=== PATIENT | male | born 1960 | race Caucasian/White ===

== ENCOUNTER 2016-07-22 18:01 | Observation (INO) | payer OTHER ==
--- NOTE | 2016-07-22 18:13 | ER Document Report ---
ED Medical Screen (RME) - General Chief Complaint: Abdominal Pain >50 Stated Complaint: ABDOMINAL PAIN Time Seen by Provider: 07/22/16 18:12 Notes: Patient is a 55-year-old male, past medical history rectal cancer s/p cancer/ radiation/chemo 9 years ago (now "cured"), presents with 2 hours of intermittent right upper quadrant abdominal pain radiating into his RLQ. PE: NAD. RRR. Lungs CTAB. RUQ abdominal tenderness. I have greeted and performed a rapid initial assessment of this patient. A comprehensive ED assessment and evaluation of the patient, analysis of test results and completion of the medical decision making process will be conducted by additional ED providers. TRAVEL OUTSIDE OF THE [place] IN LAST 30 DAYS: No - Related Data Allergies/Adverse Reactions: No Known Allergies Allergy (Verified 07/22/16 18:18) Past Medical History - Social History Family history: Malignancy Renal/ Medical History: Denies: Hx Peritoneal Dialysis Malignancy Medical History: Reports Hx Colorectal Cancer Past Surgical History: Reports: Hx Abdominal Surgery - COLON Ca RESECTED - Immunizations Hx Diphtheria, Pertussis, Tetanus Vaccination: No Physical Exam - Vital signs Vitals: Temp Pulse Resp BP Pulse Ox 97.5 F 70 20 142/73 H 96 07/22/16 18:08 07/22/16 18:08 07/22/16 18:08 07/22/16 18:08 07/22/16 18:08 Course - Vital Signs Vital signs: Temp Pulse Resp BP Pulse Ox 97.5 F 70 20 142/73 H 96 07/22/16 18:08 07/22/16 18:08 07/22/16 18:08 07/22/16 18:08 07/22/16 18:08
[2016-07-22 18:48] LABS: APPEARANCE,URINE CLEAR; BILIRUBIN,URINE NEGATIVE (NEGATIVE); GLUCOSE, URINE NEGATIVE (NEGATIVE); KETONES,URINE NEGATIVE (NEGATIVE); LEUKOCYTE ESTERASE,URINE NEGATIVE (NEGATIVE); NITRITE,URINE NEGATIVE (NEGATIVE); PROTEIN,URINE NEGATIVE (NEGATIVE); URINE SPECIFIC GRAVITY 1.029; UROBILINOGEN,URINE NEGATIVE mg/dL (<2.0)
[2016-07-22 18:49] LABS: ABSOLUTE LYMPHOCYTES (AUTO) 1.3 10^3/uL (0.5-4.7); ABSOLUTE NEUT (AUTO) 11.8 10^3/uL (1.7-8.2); BASOPHILS % (AUTO) 0.3 % (0-2); EOSINOPHILS % (AUTO) 0.1 % (0-6); HEMATOCRIT 48.9 % (37.9-51.0); HEMOGLOBIN 16.3 g/dL (13.5-17.0); MEAN CORPUSCULAR HEMOGLOBIN 28.6 pg (27.0-33.4); MEAN CORPUSCULAR HGB CONC 33.4 g/dL (32.0-36.0); MEAN CORPUSCULAR VOLUME 86 fl (80-97); MONOCYTES % (AUTO) 7.1 % (3-13); RED BLOOD COUNT 5.71 10^6/uL (4.35-5.55); RED CELL DISTRIBUTION WIDTH 14.1 % (11.5-14.0); SEGMENTED NEUTROPHILS % (AUTO) 83.5 % (42-78); WHITE BLOOD COUNT 14.1 10^3/uL (4.0-10.5)
[2016-07-22 19:03] LABS: ALANINE AMINOTRANSFERASE 52 U/L (21-72); ALBUMIN 4.7 g/dL (3.5-5.0); ALKALINE PHOSPHATASE 76 U/L (38-126); ANION GAP 13 (5-19); ASPARTATE AMINO TRANSFERASE 31 U/L (17-59); BILIRUBIN,DIRECT 0.2 mg/dL (0.0-0.4); BILIRUBIN,TOTAL 0.9 mg/dL (0.2-1.3); BLOOD UREA NITROGEN 28 mg/dL (7-20); CARBON DIOXIDE 24 mmol/L (22-30); CHLORIDE 106 mmol/L (98-107); CREATININE RESULT 0.79 mg/dL (0.52-1.25); GLUCOSE 93 mg/dL (75-110); LIPASE 148.1 U/L (23-300); POTASSIUM 4.4 mmol/L (3.6-5.0); SODIUM 142.7 mmol/L (137-145); TOTAL PROTEIN 7.9 g/dL (6.3-8.2)
--- NOTE | 2016-07-22 19:59 | RADIOLOGY REPORT (SQ) ---
EXAM DESCRIPTION: U/S ABDOMEN LIMITED W/O DOP COMPLETED DATE/TIME: 07/22/2016 7:22 pm REASON FOR STUDY: RUQ pain and tenderness COMPARISON: None. TECHNIQUE: Dynamic and static grayscale images acquired of the right upper quadrant and recorded on PACS. Additional selected color Doppler and spectral images recorded. LIMITATIONS: Study limited due to acoustical interference from fat or from air in the bowel. FINDINGS: PANCREAS: Parts or all of the pancreas poorly seen secondary to acoustical interference fr om fat or from air in the bowel. LIVER: Echotexture is coarse with increased echogenicity consistent with fatty infiltration. No mass es. LIVER VASCULATURE: Normal directional flow of the main portal vein and hepatic veins. GALLBLADDER: No stones. Normal wall thickness. No pericholecystic fluid. ULTRASOUND-DETECTED SKY'S SIGN: Reported positive. INTRAHEPATIC DUCTS AND COMMON DUCT: CBD and intrahepatic ducts normal caliber. No filling defects. INFERIOR VENA CAVA: Normal flow. AORTA: No aneurysm. RIGHT KIDNEY: Normal size. Normal echogenicity. No solid or suspicious masses. No hydronephrosis. No calcifications. PERITONEAL CAVITY AND RIGHT PLEURAL SPACE: No ascites or effusions. OTHER: No other significant finding. IMPRESSION: ULTRASOUND-DETECTED SKY'S SIGN: Reported positive. No gallstones or inflammatory changes of gallbladder wall/fossa. FATTY LIVER. PANCREAS PARTIALLY OR COMPLETELY OBSCURED. TECHNICAL DOCUMENTATION: JOB ID: [id number] [employer]- All Rights Reserved
[2016-07-22] MEDS ORDERED: MORPHINE SULFATE 10 MG/ML INJ IV ONE (20:15)
[2016-07-22] MEDS ORDERED: ONDANSETRON HCL INJ/PF 4 MG/2 ML SDV IV ONE (20:15)
[2016-07-22] MEDS ORDERED: NORMAL SALINE 1000 ML 1,000 ML IV ONE (20:16)
--- NOTE | 2016-07-22 20:18 | ER Document Report ---
ED GI/ - General Mode of Arrival: Ambulatory Information source: Patient TRAVEL OUTSIDE OF THE [place] IN LAST 30 DAYS: No - HPI Patient complains to provider of: Abdominal pain Associated symptoms: Other - See above <CANDELARIO FLETCHER - Last Filed: 07/22/16 21:46> <VIRY PEREIRA - Last Filed: 07/23/16 01:00> - General Chief Complaint: Abdominal Pain >50 Stated Complaint: ABDOMINAL PAIN Time Seen by Provider: 07/22/16 18:12 Notes: Patient is a 55 year old male, with a past medical history including rectal cancer, who presents to the emergency department complaining of abdominal pain on set 2 hours ago. Patient reports the pain came on gradually and is focused in his right lower quadrant. Patient also complains of mild nausea. (CANDELARIO FLETCHER) - Related Data Allergies/Adverse Reactions: No Known Allergies Allergy (Verified 07/22/16 18:18) Past Medical History - General Information source: Patient - Social History Smoking Status: Never Smoker Chew tobacco use (# tins/day): No Frequency of alcohol use: None Drug Abuse: None Family History: Reviewed & Not Pertinent Patient has suicidal ideation: No Patient has homicidal ideation: No Malignancy Medical History: Reports Hx Colorectal Cancer Past Surgical History: Reports: Hx Abdominal Surgery - COLON Ca RESECTED - Immunizations Hx Diphtheria, Pertussis, Tetanus Vaccination: No <CANDELARIO FLETCHER - Last Filed: 07/22/16 21:46> Review of Systems - Review of Systems Constitutional: No symptoms reported EENT: No symptoms reported Cardiovascular: No symptoms reported Respiratory: No symptoms reported Gastrointestinal: See HPI, Abdominal pain, Nausea Genitourinary: No symptoms reported Male Genitourinary: No symptoms reported Musculoskeletal: No symptoms reported Skin: No symptoms reported Hematologic/Lymphatic: No symptoms reported Neurological/Psychological: No symptoms reported -: Yes All other systems reviewed and negative <CANDELARIO FLETCHER - Last Filed: 07/22/16 21:46> Physical Exam - Vital signs Interpretation: Normal - General General appearance: Alert, Other - Appears uncomfortable - HEENT Head: Normocephalic, Atraumatic Mucous membranes: Dry - Respiratory Respiratory status: No respiratory distress Chest status: Nontender Breath sounds: Normal Chest palpation: Normal - Cardiovascular Rhythm: Regular Heart sounds: Normal auscultation Murmur: No - Abdominal Inspection: Normal Distension: No distension Bowel sounds: Normal Tenderness: Tender - Right lower quadrant tenderness to palpation, Guarding. No : Rebound Organomegaly: No organomegaly - Extremities General upper extremity: Normal inspection General lower extremity: Normal inspection - Neurological Neuro grossly intact: Yes Cognition: Normal Orientation: AAOx4 Hartwick Coma Scale Eye Opening: Spontaneous Katja Coma Scale Verbal: Oriented Hart[place] Coma Scale Motor: Obeys Commands Katja Coma Scale Total: 15 Speech: Normal - Psychological Associated symptoms: Normal affect, Normal mood - Skin Skin Temperature: Warm Skin Moisture: Dry Skin Color: Normal <CANDELARIO FLETCHER - Last Filed: 07/22/16 21:46> Course - Laboratory Result Diagrams: 07/22/16 18:27 07/22/16 18:27 <CANDELARIO FLETCHER - Last Filed: 07/22/16 21:46> - Laboratory Result Diagrams: 07/22/16 18:27 07/22/16 18:27 - Diagnostic Test Radiology reviewed: Reports reviewed <VIRY PEREIRA - Last Filed: 07/23/16 01:00> - Re-evaluation Re-evalutation: 07/23/16 00:59 Continues with right lower quadrant pain and guarding on exam. No evidence for appendicitis on CT at this time. Patient does have a white count left shift. He is still complaining of pain. Surgery has been consulted and will admit the patient. He is stable at this time and agrees with this plan. (VIRY PEREIRA) - Vital Signs Vital signs: Temp Pulse Resp BP Pulse Ox 97.5 F 70 20 142/73 H 96 07/22/16 18:08 07/22/16 18:08 07/22/16 18:08 07/22/16 18:08 07/22/16 18:08 - Laboratory Laboratory results interpreted by me: 07/22/16 07/22/16 07/22/16 18:27 18:27 18:27 WBC 14.1 H RBC 5.71 H RDW 14.1 H Seg Neutrophils % 83.5 H Lymphocytes % 9.0 L Absolute Neutrophils 11.8 H BUN 28 H Urine Blood SMALL H Discharge <CANDELARIO FLETCHER - Last Filed: 07/22/16 21:46> - Discharge Admitting Provider: Surgicalist - [facility] Unit Admitted: Surgical Floor <VIRY PEREIRA - Last Filed: 07/23/16 01:00> - Discharge Clinical Impression: Abdominal pain Qualifiers: Abdominal location: right lower quadrant Qualified Code(s): R10.31 - Right lower quadrant pain Condition: Stable Disposition: ADMITTED INPATIENT Scribe Attestation: 07/23/16 01:00 I personally performed the services described in the documentation, reviewed and edited the documentation which was dictated to the scribe in my presence, and it accurately records my words and actions. (VIRY PEREIRA) Scribe Documentation - Scribe Written by Mallorie:: mallorie Koo, 07/22/16, 2148 acting as scribe for :: Cathy <CANDELARIO FLETCHER - Last Filed: 07/22/16 21:46>
--- NOTE | 2016-07-22 22:37 | RADIOLOGY REPORT (SQ) ---
EXAM DESCRIPTION: CT ABD/PELVIS ORAL ONLY COMPLETED DATE/TIME: 07/22/2016 9:52 pm REASON FOR STUDY: R flank, LQ pain COMPARISON: None. TECHNIQUE: CT scan of the abdomen and pelvis performed without intravenous or oral contrast. Images reviewed with lung, soft tissue, and bone windows. Reconstructed coronal and sagittal MPR images revi ewed. All images stored on PACS. All CT scanners at this facility use dose modulation, iterative reconstruction, and/or weight based d osing when appropriate to reduce radiation dose to as low as reasonably achievable (ALARA). [facility]: Dose Right [facility]: CareDose [facility]: Dose Right [facility]: Teradose 4D [facility]: Macheen RADIATION DOSE: 12.25mGy. LIMITATIONS: None. FINDINGS: LOWER CHEST: No significant findings. No nodules or infiltrates. NON-CONTRASTED LIVER, SPLEEN, ADRENALS: Evaluation limited by lack of IV contrast. No identified sign ificant masses. PANCREAS: No masses. No peripancreatic inflammatory changes. GALLBLADDER: No identified stones by CT criteria. No inflammatory changes to suggest cholecystitis. RIGHT KIDNEY AND URETER: No suspicious masses. Assessment limited by lack of IV contrast. No signif icant calcifications. No hydronephrosis or hydroureter. LEFT KIDNEY AND URETER: No suspicious masses. Assessment limited by lack of IV contrast. No signifi cant calcifications. No hydronephrosis or hydroureter. AORTA AND RETROPERITONEUM: No aneurysm. No retroperitoneal masses or adenopathy. BOWEL AND PERITONEAL CAVITY: Small amount of mesenteric inflammatory changes adjacent to some distal ileal loops, nonspecific. No focal transition point or evidence of obstruction. Small amount of pel scott free fluid. APPENDIX: Normal. PELVIS, BLADDER, AND ABDOMINAL WALL:Postsurgical changes in the rectum. Small amount of pelvic free fluid.. Bladder normal. BONES: No acute findings. 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 OTHER: No other significant finding. IMPRESSION: Small amount of mesenteric inflammatory changes adjacent to some distal ileal loops, non specific. No focal transition point or evidence of obstruction. Small amount of pelvic free fluid. TECHNICAL DOCUMENTATION: JOB ID: [id number] Quality ID # [id number]: Final reports with documentation of one or more dose reduction techniques (e.g., Au tomated exposure control, adjustment of the mA and/or kV according to patient size, use of iterative reconstruction technique) 2010 [employer]- All Rights Reserved
[2016-07-23] MEDS ORDERED: KETOROLAC TROMETHAMINE INJ/PF 30 MG/1 ML SDV IV ONE (00:04)
[2016-07-23] MEDS ORDERED: MORPHINE SULFATE 10 MG/ML INJ IV PRN (01:47)
[2016-07-23] MEDS ORDERED: DEXTROSE 5%-LACTATED RINGERS 1,000 ML IV PRN (01:47)
[2016-07-23] MEDS ORDERED: ONDANSETRON HCL INJ/PF 4 MG/2 ML SDV IV PRN (01:47)
--- NOTE | 2016-07-23 01:47 | PDOC H&P ---
History of Present Illness Admission Date/PCP: 07/23/16 01:15 Patient complains of: Right lower quadrant pain History of Present Illness: TANIA MASTERSON is a 55 year old male, who was in his usual state of health, when he developed gradual onset of right lower quadrant pain with associated nausea without vomiting, without change in bowel habits, fever or chills, or history of previous episodes. The pain was initially 6 out of 10 in nature, which prompted him to come to the emergency room. Patient abdomen revealed right lower quadrant tenderness, with guarding but no rebound. Patient was noted to have a mildly elevated white blood cell count at 14,000, and a CT scan showed mesenteric inflammatory changes around the distal ileum, with a normal appendix. The impression was that this was an ileitis, and the patient is now admitted to the surgical service. Past Medical History Malignancy Medical History: Reports: Colorectal Cancer Social History Smoking Status: Never Smoker Family History Family History: Reviewed & Not Pertinent Parental Family History Reviewed: No - Not applicable Children Family History Reviewed: No - Not applicable Sibling(s) Family History Reviewed.: No - Not applicable Medication/Allergy Home Medications: Doxycycline Hyclate 100 mg PO BID #14 capsule 09/18/15 Ondansetron [Zofran Odt 4 mg Tablet] 1 - 2 tab PO Q4H PRN #15 tab.rapdis Meclizine HCl [Antivert 25 mg Tablet] 25 mg PO Q6HP PRN #30 tablet 10/15/15 Allergies/Adverse Reactions: No Known Allergies Allergy (Verified 07/22/16 18:18) Physical Exam Vital Signs: Temp Pulse Resp BP Pulse Ox 97.5 F 70 20 142/73 H 96 07/22/16 18:08 07/22/16 18:08 07/22/16 18:08 07/22/16 18:08 07/22/16 18:08 General appearance: PRESENT: no acute distress, cooperative, thin, well- developed, well-nourished Head exam: PRESENT: atraumatic, normocephalic Eye exam: PRESENT: conjunctiva pink, EOMI, PERRLA Mouth exam: PRESENT: moist, neck supple, tongue midline Neck exam: PRESENT: full ROM. ABSENT: JVD, lymphadenopathy, tenderness, thyromegaly, tracheal deviation Respiratory exam: PRESENT: clear to auscultation michelle Cardiovascular exam: PRESENT: RRR GI/Abdominal exam: PRESENT: guarding - guarding is mild, normal bowel sounds, soft, tenderness - High in the right lower quadrant, approaching the right paramedian region., other - Infraumbilical midline scar. Rectal exam: PRESENT: deferred Extremities exam: PRESENT: full ROM Musculoskeletal exam: PRESENT: full ROM Skin exam: PRESENT: warm Results Impressions: Abdomen Ultrasound 07/22/16 18:23 IMPRESSION: ULTRASOUND-DETECTED SKY'S SIGN: Reported positive. No gallstones or inflammatory changes of gallbladder wall/fossa. FATTY LIVER. PANCREAS PARTIALLY OR COMPLETELY OBSCURED. Abdomen/Pelvis CT 07/22/16 21:16 IMPRESSION: Small amount of mesenteric inflammatory changes adjacent to some distal ileal loops, nonspecific. No focal transition point or evidence of obstruction. Small amount of pelvic free fluid. Assessment & Plan - Plan Summary Plan Summary: We will keep the patient n.p.o., administer IV fluids, antibiotics, parenteral analgesics, and anti-emetics.
[2016-07-23] MEDS ORDERED: METRONIDAZOLE 500 MG/NS RTU 100 ML IV ONE (02:00)
[2016-07-23] MEDS ORDERED: CIPROFLOXACIN 400 MG/D5W RTU 400 MG/200 ML RTUPB IV ONE (02:00)
[2016-07-23 06:48] LABS: ABSOLUTE BASOPHILS # (AUTO) 0.1 10^3/uL (0.0-0.2); ABSOLUTE EOSINOPHILS # (AUTO) 0.1 10^3/uL (0.0-0.6); ABSOLUTE LYMPHOCYTES (AUTO) 1.1 10^3/uL (0.5-4.7); ABSOLUTE MONOCYTES (AUTO) 1.1 10^3/uL (0.1-1.4); BASOPHILS % (AUTO) 0.6 % (0-2); EOSINOPHILS % (AUTO) 0.6 % (0-6); HEMATOCRIT 44.5 % (37.9-51.0); HEMOGLOBIN 14.8 g/dL (13.5-17.0); HGB HCT DIFFERENCE -0.1; LYMPHOCYTES % (AUTO) 10.9 % (13-45); MEAN CORPUSCULAR HEMOGLOBIN 28.9 pg (27.0-33.4); MEAN CORPUSCULAR HGB CONC 33.2 g/dL (32.0-36.0); MEAN CORPUSCULAR VOLUME 87 fl (80-97); MONOCYTES % (AUTO) 10.9 % (3-13); RED BLOOD COUNT 5.11 10^6/uL (4.35-5.55); RED CELL DISTRIBUTION WIDTH 14.1 % (11.5-14.0); WHITE BLOOD COUNT 10.4 10^3/uL (4.0-10.5)
[2016-07-23] MEDS: ENOXAPARIN SODIUM INJ 40 MG/0.4 ML DISP.SYRIN SUBCUT SCH (07:54)
--- NOTE | 2016-07-23 08:04 | PDOC PROGRESS REPORT ---
Subjective Progress Note for:: 07/23/16 Subjective:: Feel better. Abdominal pain has not resolved but has improved since admission. Had bowel movements yesterday. Physical Exam Vital Signs: Temp Pulse Resp BP Pulse Ox 97.4 F 52 L 18 122/89 H 99 07/23/16 05:49 07/23/16 05:49 07/23/16 05:49 07/23/16 05:49 07/23/16 05:49 General appearance: PRESENT: no acute distress, cooperative Respiratory exam: PRESENT: clear to auscultation michelle Cardiovascular exam: PRESENT: RRR GI/Abdominal exam: PRESENT: other - Soft, very mild right lower quadrant abdominal tenderness with no peritoneal signs. Well-healed lower midline abdominal scar. No palpable hernia defects. Extremities exam: PRESENT: other - No swelling Results Laboratory Results: 07/23/16 06:15 07/23/16 06:15 WBC 10.4 RBC 5.11 Hgb 14.8 Hct 44.5 MCV 87 MCH 28.9 MCHC 33.2 RDW 14.1 H Plt Count 210 Seg Neutrophils % 77.0 Lymphocytes % 10.9 L Monocytes % 10.9 Eosinophils % 0.6 Basophils % 0.6 Absolute Neutrophils 8.0 Absolute Lymphocytes 1.1 Absolute Monocytes 1.1 Absolute Eosinophils 0.1 Absolute Basophils 0.1 Impressions: Abdomen Ultrasound 07/22/16 18:23 IMPRESSION: ULTRASOUND-DETECTED SKY'S SIGN: Reported positive. No gallstones or inflammatory changes of gallbladder wall/fossa. FATTY LIVER. PANCREAS PARTIALLY OR COMPLETELY OBSCURED. Abdomen/Pelvis CT 07/22/16 21:16 IMPRESSION: Small amount of mesenteric inflammatory changes adjacent to some distal ileal loops, nonspecific. No focal transition point or evidence of obstruction. Small amount of pelvic free fluid. Assessment & Plan - Diagnosis (1) Terminal ileitis of small intestine Qualifiers: Digestive disease complication type: without complication Qualified Code(s): K50.00 - Crohn's disease of small intestine without complications Is this a current diagnosis for this admission?: YesPlan: Responding to antibiotics. Will start clear liquids. No gastroenterology available for consultation. Will obtain hospitalist consult.
[2016-07-23] MEDS: METRONIDAZOLE 500 MG/NS RTU 100 ML IV SCH ×3 (09:06→20:55)
[2016-07-23] MEDS: CIPROFLOXACIN 400 MG/D5W RTU 400 MG/200 ML RTUPB IV SCH ×2 (10:49→22:06)
[2016-07-23] MEDS: ONDANSETRON HCL INJ/PF 4 MG/2 ML SDV IV PRN ×3 (11:08→19:21)
--- NOTE | 2016-07-23 13:10 | PDOC H&P ---
History of Present Illness Admission Date/PCP: 07/23/16 01:47 History of Present Illness: TANIA MASTERSON is a 55 year old male, who was in his usual state of health, when he developed gradual onset of right lower quadrant pain with associated nausea without vomiting, without change in bowel habits, fever or chills, or history of previous episodes. The pain was initially 6 out of 10 in nature, which prompted him to come to the emergency room. Patient abdomen revealed right lower quadrant tenderness, with guarding but no rebound. Patient was noted to have a mildly elevated white blood cell count at 14,000, and a CT scan showed mesenteric inflammatory changes around the distal ileum, with a normal appendix. The impression was that this was an ileitis, and the patient is now admitted to the surgical service. Patient has been requested for ileitis. Past Medical History Past Medical History: Rectal cancer stage III status post chemotherapy radiation and surgical resection Malignancy Medical History: Reports: Colorectal Cancer Past Surgical History Past Surgical History: Reports: Other - Colectomy Social History Smoking Status: Never Smoker Frequency of Alcohol Use: None Hx Recreational Drug Use: No Hx Prescription Drug Abuse: No - Advance Directive Resuscitation Status: Full Code Surrogate healthcare decision maker:: Akash romo Family History Family History: Malignancy Parental Family History Reviewed: Yes Children Family History Reviewed: Yes Sibling(s) Family History Reviewed.: Yes Medication/Allergy Home Medications: Cyanocobalamin (Vitamin B-12) [Vitamin B-12] 2,000 mcg PO QHS 07/23/16 Allergies/Adverse Reactions: No Known Allergies Allergy (Verified 07/22/16 18:18) Review of Systems Constitutional: PRESENT: anorexia. ABSENT: chills, fever(s), headache(s), weight gain, weight loss Eyes: ABSENT: visual disturbances Ears: ABSENT: hearing changes Cardiovascular: ABSENT: chest pain, dyspnea on exertion, edema, orthropnea, palpitations Respiratory: ABSENT: cough, hemoptysis Gastrointestinal: PRESENT: abdominal pain, nausea. ABSENT: constipation, diarrhea, dysphagia, hematemesis, hematochezia, melena, vomiting Genitourinary: ABSENT: dysuria, hematuria Musculoskeletal: ABSENT: joint swelling Integumentary: ABSENT: rash, wounds Neurological: ABSENT: abnormal gait, abnormal speech, confusion, dizziness, focal weakness, syncope Psychiatric: ABSENT: anxiety, depression, homidical ideation, suicidal ideation Endocrine: ABSENT: cold intolerance, heat intolerance, polydipsia, polyuria Hematologic/Lymphatic: ABSENT: easy bleeding, easy bruising Physical Exam Vital Signs: Temp Pulse Resp BP Pulse Ox 97.5 F 58 L 14 123/80 95 07/23/16 12:27 07/23/16 12:27 07/23/16 12:27 07/23/16 12:27 07/23/16 12:27 Intake & Output 07/22/16 07/23/16 07/24/16 06:59 06:59 06:59 Output Total 500 Balance -500 General appearance: PRESENT: mild distress, well-developed, well-nourished Head exam: PRESENT: atraumatic, normocephalic Eye exam: PRESENT: conjunctiva pink, EOMI, PERRLA. ABSENT: scleral icterus Ear exam: PRESENT: normal external ear exam Mouth exam: PRESENT: dry mucosa, tongue midline Neck exam: ABSENT: JVD, lymphadenopathy, thyromegaly, tracheal deviation Respiratory exam: PRESENT: clear to auscultation michelle. ABSENT: rales, rhonchi, wheezes Cardiovascular exam: PRESENT: RRR, +S1, +S2. ABSENT: diastolic murmur, rubs, systolic murmur, tachycardia Pulses: PRESENT: normal dorsalis pedis pul Vascular exam: PRESENT: normal capillary refill GI/Abdominal exam: PRESENT: distended, guarding, hypoactive bowel sounds, soft. ABSENT: firm, mass, organolmegaly, rebound, rigid, tenderness Rectal exam: PRESENT: deferred Extremities exam: PRESENT: full ROM. ABSENT: calf tenderness, clubbing, pedal edema Neurological exam: PRESENT: alert, awake, oriented to person, oriented to place , oriented to time, oriented to situation, CN II-XII grossly intact. ABSENT: motor sensory deficit Psychiatric exam: PRESENT: appropriate affect, normal mood. ABSENT: homicidal ideation, suicidal ideation Skin exam: PRESENT: dry, intact, warm. ABSENT: cyanosis, rash Results Laboratory Results: 07/23/16 06:15 07/23/16 06:15 WBC 10.4 RBC 5.11 Hgb 14.8 Hct 44.5 MCV 87 MCH 28.9 MCHC 33.2 RDW 14.1 H Plt Count 210 Seg Neutrophils % 77.0 Lymphocytes % 10.9 L Monocytes % 10.9 Eosinophils % 0.6 Basophils % 0.6 Absolute Neutrophils 8.0 Absolute Lymphocytes 1.1 Absolute Monocytes 1.1 Absolute Eosinophils 0.1 Absolute Basophils 0.1 Impressions: Abdomen Ultrasound 07/22/16 18:23 IMPRESSION: ULTRASOUND-DETECTED SKY'S SIGN: Reported positive. No gallstones or inflammatory changes of gallbladder wall/fossa. FATTY LIVER. PANCREAS PARTIALLY OR COMPLETELY OBSCURED. Abdomen/Pelvis CT 07/22/16 21:16 IMPRESSION: Small amount of mesenteric inflammatory changes adjacent to some distal ileal loops, nonspecific. No focal transition point or evidence of obstruction. Small amount of pelvic free fluid. Assessment & Plan - Diagnosis (1) Terminal ileitis of small intestine Qualifiers: Digestive disease complication type: without complication Qualified Code(s): K50.00 - Crohn's disease of small intestine without complications Is this a current diagnosis for this admission?: YesPlan: Differential for this includes bacterial infection including Shigella, E. coli, Campylobacter, Salmonella, Yersinia, tuberculosis, C. difficile, vibrio, and chlamydia in addition to parasites and cytomegalovirus. Although not yet ruled out, I am disinclined to these diagnoses secondary to his lack of diarrhea. Stool studies if patient does begin to have diarrhea. Additionally radiation, although remote, may also in this type of presentation. More commonly, radiation colitis is left-sided. Consideration should also be given to NSAID ileitis. At this time, although grateful for the consult I recommend a GI evaluation and we will sign off of this case and are available for any other medical concerns. This was discussed with the primary team, Dr. Boswell. (2) History of colorectal cancer Is this a current diagnosis for this admission?: YesPlan: Patient has a personal history of stage III colorectal cancer in 2008 which was treated with chemotherapy, radiation, and surgical intervention. Patient reports his last colonoscopy was approximately 2 years ago. - Time Time Spent: 50 to 70 Minutes Medications reviewed and adjusted accordingly: Yes
[2016-07-23] MEDS: MORPHINE SULFATE 10 MG/ML INJ IV PRN ×2 (14:23→19:21)
[2016-07-24] MEDS: METRONIDAZOLE 500 MG/NS RTU 100 ML IV SCH ×4 (02:40→21:02)
[2016-07-24] MEDS: ONDANSETRON HCL INJ/PF 4 MG/2 ML SDV IV PRN ×3 (02:41→19:52)
[2016-07-24] MEDS: ENOXAPARIN SODIUM INJ 40 MG/0.4 ML DISP.SYRIN SUBCUT SCH (08:16)
--- NOTE | 2016-07-24 08:24 | PROGRESS NOTE E ---
Progress Note NAME: TANIA MSATERSON : 1960 AGE: 55Y DATE: 07/24/2016 ROOM: 435 SUBJECTIVE: The patient's abdominal pain appears to have decreased quite a bit, but he is still having some nausea. OBJECTIVE: His abdomen is soft. He has mild tenderness on the right lower quadrant. His white count yesterday morning was around 14.1. PLAN: 1. Gradually increase his diet to full liquids today and progress to soft diet in the morning hopefully prior to being discharged. 2. He is being followed up by GI and oncology in [place], and the last colonoscopy was about 3 years ago. They said they will follow up with his GI in [place] for possible followup colonoscopy. 3. We will discharge in 24-48 hours and continue on p.o. antibiotics for about a week. DICTATING PHYSICIAN: TIARA DOUGHERTY M.D. [id number] PHY#: [id number] ID: [id number] JOB#: [id number] ACCT: [id number] cc: >
[2016-07-24] MEDS: CIPROFLOXACIN 400 MG/D5W RTU 400 MG/200 ML RTUPB IV SCH ×2 (09:38→22:15)
[2016-07-25] MEDS: METRONIDAZOLE 500 MG/NS RTU 100 ML IV SCH ×2 (03:20→08:30)
[2016-07-25] MEDS: ENOXAPARIN SODIUM INJ 40 MG/0.4 ML DISP.SYRIN SUBCUT SCH (08:30)
[2016-07-25 10:02] VITALS: BP 106/66
--- NOTE | 2016-07-25 10:19 | DISCHARGE SUMMARY E ---
Discharge Summary NAME: TANIA MASTERSON : 1960 AGE: 55Y ADMITTED: 07/23/2016 DISCHARGED: 07/25/2016 FINAL DIAGNOSIS: Terminal ileitis. HOSPITAL COURSE: This is a 55-year-old male with history of colon cancer post surgery with adjuvant chemotherapy and radiation therapy. Patient admitted for abdominal pain and CAT scan revealed inflammation on the area of terminal ileum. His white count on admission was 14.1 and then it decreased to 10.4 the next day. He was able to tolerate liquids yesterday though with some nausea. This morning his pains are much less and his abdomen is soft with minimal tenderness in the right lower quadrant. He is afebrile and he is tolerating soft diet. He will be discharged today with a diagnosis of terminal ileitis on p.o. Flagyl and Cipro. I have discussed his case with the patient and his and they agree that they will get in touch with his GI in [place] Wednesday. I gave him a note also that he can go back to work Wednesday and he should be continued on a soft diet until seen by his GI. DICTATING PHYSICIAN: TIARA DOUGHERTY M.D. [id number] PHY#: [id number] ID: [id number] JOB#: [id number] ACCT: [id number] cc:[facility] TIARA CAMPOS M.D, M.D. [facility] >
== END 2016-07-25 10:00 | disposition home or self-care (01) ==
LOC: ER 18:01 → EH 07-23 01:15 → UNDOADMOB 07-23 01:15 → INTOOBSV 07-23 01:15 → EH 07-23 01:47 → 4S 07-23 05:30
PROVIDERS: ATTEND Surgery
DX: K50.00 Crohn's disease of small intestine without complications (principal); K76.0 Fatty (change of) liver, not elsewhere classified; Z85.038 Personal history of other malignant neoplasm of large intestine; Z85.048 Personal history of other malignant neoplasm of rectum, rectosigmoid junction, and anus; Z92.3 Personal history of irradiation; Z92.21 Personal history of antineoplastic chemotherapy; Z90.49 Acquired absence of other specified parts of digestive tract; Z80.9 Family history of malignant neoplasm, unspecified
CPT/HCPCS: 99285; 96361; 96374; 96375; 36415 ×2; 83690; 85025 ×2; 80053; 81001; 76705; 74176; G0378 ×4; J1885; J2270 ×2; J1650 ×3; J2405 ×3; J7030; J0744 ×2

== ENCOUNTER → 2016-08-06 | Outpatient (CLI) | payer OTHER ==
--- NOTE | 2016-08-06 17:34 | XCELERA REPORT ---
[address] [address] Lower Extremity Venous Evaluation Name: TANIA MASTERSON Age: 55 yrs Gender: Male : 1960 Patient Status: Outpatient Patient Location: Study Date: 08/06/2016 01:00 PM Procedure: Color flow and duplex imaging of the veins of the left lower extremity as well as the right Common Femoral vein. Reason For Study: LEFT THIGH PAIN AND SWELLING M79.652 Ordering Physician: MARGI WARD Performed By: Katia Jimenez Right Sided Venous Evaluation The right common femoral vein is fully compressible. Spontaneous and phasic flow is present in the right common femoral vein. Left Sided Venous Evaluation Normal vessel filling wall to wall, compression and augmentation as well as Colour flow down to the infrageniculate veins. Critical Findings Called in at about 1500. Interpretation Summary No duplex evidence of DVT or obstruction in the left lower extremity nor in the right Common Femoral vein. : MARGI WARD > Axel Alvarado
== END ==
LOC: SP 12:50
PROVIDERS: ATTEND Family Medicine
DX: M79.652 Pain in left thigh (principal); M79.89 Other specified soft tissue disorders
CPT/HCPCS: 93971

== ENCOUNTER 2018-02-05 00:56 | Emergency (ER) | payer OTHER ==
--- NOTE | 2018-02-05 01:50 | ER Document Report ---
ED General - General Chief Complaint: Rash Stated Complaint: RASH ON BOTH FEET Time Seen by Provider: 02/05/18 01:25 Notes: Patient is a 57-year-old male presents with complaint of a rash on his feet. Patient says that he noticed redness and dryness and itching on his feet. He therefore has been putting rubbing alcohol on it and it became much worse. He says he has one other small spot in his thigh. He says it is nowhere near as bad. He says he has not been placing alcohol on that area. No fevers. No vomiting. Says he had similar rashes in the past but not to this extent. He said he used to put lotion on his feet to keep them from becoming dry but recently stopped doing it and now this rash has appeared. He does not wear boots. He says he is normal tennis shoes and socks. TRAVEL OUTSIDE OF THE [place] IN LAST 30 DAYS: No - Related Data Allergies/Adverse Reactions: No Known Allergies Allergy (Verified 07/22/16 18:18) Past Medical History - Social History Smoking Status: Unknown if Ever Smoked Frequency of alcohol use: None Drug Abuse: None Family History: Malignancy Renal/ Medical History: Denies: Hx Peritoneal Dialysis Malignancy Medical History: Reports Hx Colorectal Cancer Past Surgical History: Reports: Hx Abdominal Surgery - COLON Ca RESECTED, Other - Colectomy - Immunizations Hx Diphtheria, Pertussis, Tetanus Vaccination: No Review of Systems - Review of Systems Notes: My Normal Review Basic REVIEW OF SYSTEMS: CONSTITUTIONAL : Denies fever, chills, or sweats. Denies recent illness. GASTROINTESTINAL: Denies abdominal pain. Denies nausea, vomiting, or diarrhea. MUSCULOSKELETAL: Denies neck or back pain or joint pain or swelling. SKIN: Redness and itching to both feet. NEUROLOGICAL: Denies sensory or motor loss. ALL OTHER SYSTEMS REVIEWED AND NEGATIVE. Physical Exam - Vital signs Vitals: Temp Pulse Resp BP Pulse Ox 97.5 F 65 18 128/92 H 97 02/05/18 00:57 02/05/18 00:57 02/05/18 00:57 02/05/18 00:57 02/05/18 00:57 - Notes Notes: General Appearance: Well nourished, alert, cooperative, no acute distress, no obvious discomfort. Vitals: reviewed, See vital signs table. Eyes: PERRL, EOMI, Conjuctiva clear Extremities: strength 5/5 in all extremities, good pulses in all extremities, No swelling to joints Skin: Redness and dry skin starting at the ankles and going distally into the feet and toes. No peeling of the skin. There is some cracking of the skin consistent with eczema and dry skin. No abnormal warmth. Exam not consistent with cellulitis or infection. Neuro: speech clear, oriented x 3, normal affect, responds appropriately to questions. Course - Re-evaluation Re-evalutation: 02/05/18 06:16 I suspect that the patient's redness in his feet is probably related to eczema very dry skin. I talked to him and his at length about using a non- perfumed non-dyed lotion such as CeraVe or Eucerin. It sounds as if he had to use lotion in the past to deal with similar type issues. I informed him that if this is not working then he should add in the triamcinolone cream. I told him to wait at least 4-5 days before considering adding in the try ampicillin cream. I do not suspect athlete's foot. He does not have a scaling or peeling they typically see with athlete's foot. Informed him to follow-up with his doctor this coming week. I encouraged him return to ER for spreading or worsening of the rash or if he feels unwell. Patient agrees with plan will be discharged home. Dictation of this chart was performed using voice recognition software; therefore, there may be some unintended grammatical errors. - Vital Signs Vital signs: Temp Pulse Resp BP Pulse Ox 97.6 F 62 16 115/81 96 02/05/18 02:26 02/05/18 02:26 02/05/18 02:26 02/05/18 02:26 02/05/18 02:26 Discharge - Discharge Clinical Impression: Rash Condition: Good Disposition: HOME, SELF-CARE Additional Instructions: Please apply a perfume free and dye free lotion to your foot such as Cera Ve. Apply this cream to the feet twice a day. If after 5 days you are not having improvement you can add the steroid cream (triamcinolone cream). Apply this cream daily. Return to the ER if you have worsening of your rash or it is not improving with the creams. Follow up with your doctor in 1-2 weeks for reevaluation. Prescriptions: RX: Triamcinolone Acetonide [Triderm] 454 gm TP ASDIR PRN #1 cream..g. PRN Reason: Referrals: NOE BARTHOLOMEW L[facility] ASSISTANT [Primary Care Provider] - Follow up in 1 week
[2018-02-05 02:39] VITALS: BP 115/81
== END 2018-02-05 02:38 | disposition home or self-care (01) ==
LOC: ER 00:56
DX: R21 Rash and other nonspecific skin eruption (principal); L29.8 Other pruritus; Z85.048 Personal history of other malignant neoplasm of rectum, rectosigmoid junction, and anus
CPT/HCPCS: 99283

== ENCOUNTER → 2019-07-21 | Outpatient (CLI) | payer OTHER ==
--- NOTE | 2019-07-21 13:56 | RADIOLOGY REPORT (SQ) ---
EXAM DESCRIPTION: CT HEAD WITHOUT IMAGES COMPLETED DATE/TIME: 07/21/2019 1:14 pm REASON FOR STUDY: HEADACHE (R51), VISUAL DISTURBANCES (H53.19) R51 HEADACHE H53.19 OTHER SUBJECTIV E VISUAL DISTURBANCES COMPARISON: CT of the head without contrast from 10/15/2015. TECHNIQUE: Axial images acquired through the brain without intravenous contrast. Images reviewed wi th bone, brain and subdural windows. Images stored on PACS. All CT scanners at this facility use dose modulation, iterative reconstruction, and/or weight based d osing when appropriate to reduce radiation dose to as low as reasonably achievable (ALARA). [facility]: Dose Right [facility]: CareDose [facility]: Dose Right [facility]: Teradose 4D [facility]: Musicraiser RADIATION DOSE: CT Rad equipment meets quality standard of care and radiation dose reduction techniq ues were employed. CTDIvol: 48.5 mGy. DLP: 879 mGy-cm. LIMITATIONS: None. FINDINGS: There is no acute intracranial hemorrhage, vascular territorial infarct, extra-axial fluid collection, mass effect or midline shift. The slaughter-white matter differentiation is preserved. Ther e is no effacement of the cerebral sulci or basal subarachnoid cisterns. The caliber of the ventricl es is concordant with the degree of sulcation. The orbits and globes are intact. There is mild polypoid mucosal thickening of the inferior surface of the maxillary sinuses ; there is no paranasal sinus air-fluid level. There is no calvarium. IMPRESSION: No acute intracranial abnormality. EVIDENCE OF ACUTE STROKE: NO. COMMENT: Quality ID # [id number]: Final reports with documentation of one or more dose reduction techniques (e.g., Automated exposure control, adjustment of the mA and/or kV according to patient size, use of iterative reconstruction technique) TECHNICAL DOCUMENTATION: JOB ID: [id number] 2010 [employer]- All Rights Reserved Reading location - IP/workstation name: [email or web address]
== END ==
LOC: RAD 12:23
PROVIDERS: ATTEND Registered Nurse
DX: R51 Headache (principal); H53.19 Other subjective visual disturbances
CPT/HCPCS: 70450

== ENCOUNTER → 2019-07-27 | Outpatient (CLI) | payer OTHER ==
--- NOTE | 2019-07-27 14:31 | RADIOLOGY REPORT (SQ) ---
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 Additional thin section axial and coronal fat-sat T2, pre and postcontrast T1 weighted images through orbits. Images stored on PACS. CONTRAST TYPE AND DOSE: 15 mL Prohance. RENAL FUNCTION: Not indicated. ACR Type II contrast agent associated with few, if any, unconfounded cases of NSF LIMITATIONS: None. FINDINGS: ANATOMY: No developmental anomalies. Normal vascular flow voids. Pituitary fossa demonstra hernando an empty sella, unchanged from 2011 CSF SPACES: Normal in size and contour. No hemorrhage. CEREBRUM: Sulci and gyri normal in size and contour. Age-appropriate minimal spotty increased white matter signal on FLAIR imaging. No evidence of hemorrhage, mass, or extraaxial fluid collection. No a bnormal enhancement post contrast. POSTERIOR FOSSA: No signal alteration. No hemorrhage. No edema, masses, or mass effect. Internal edouard tory canals, cerebellopontine angles, mastoids normal. No enhancing lesions. No abnormal enhancement post contrast. DIFFUSION IMAGING: Negative for acute or subacute infarction. ORBITS: Globes symmetric. Grossly conjugate gaze. Optic nerves, intra and extraconal fat, extraocul ar muscles, lacrimal apparatus unremarkable. PARANASAL SINUSES: No fluid levels. Mucosa normal. Mastoid air cells and middle ear cavities are danny ar. OTHER: No other significant finding. IMPRESSION: ESSENTIALLY NORMAL MRI OF THE BRAIN WITHOUT AND WITH INTRAVENOUS GADOLINIUM CONTRAST. EVIDENCE OF ACUTE STROKE: NO. TECHNICAL DOCUMENTATION: JOB ID: [id number] 2010 [employer]- All Rights Reserved Reading location - IP/workstation name: [email or web address]
== END ==
LOC: RAD 12:28
PROVIDERS: ATTEND Ophthalmology
DX: H53.2 Diplopia (principal); H49.22 Sixth [abducent] nerve palsy, left eye
CPT/HCPCS: 82565; 70553; A9576